=== PATIENT | female | born 1985 | race Two or more races ===

== ENCOUNTER 2019-04-19 08:46 | Day surgery (SDC) | payer BC ==
[2019-04-18 10:56] LABS: BLOOD UREA NITROGEN,BUN 12 mg/dL (7.0-18.0); CARBON DIOXIDE,CO2 26.6 mmol/L (21.0-32.0); CHLORIDE,CL 104 mmol/L (98-107); GLUCOSE RANDOM 96 mg/dL (74-106); POTASSIUM,K 4.2 mmol/L (3.5-5.1); SODIUM,NA 138 mmol/L (136-145)
[~2019-04-19 08:46] MED LIST: Sodium Chloride 0.9% 10 ML SDV IV PRN; Sodium Chloride 0.9% 10 ML Syringe FLUSH PRN; Sodium Chloride 0.9% 2.5 ML Syringe FLUSH PRN; ceFAZolin 2 GM in Premix Bag 1 BAG IV ONE
[2019-04-19] MEDS ORDERED: Lidocaine 2% 5 ML SDV ONE (09:20)
[2019-04-19] MEDS ORDERED: Rocuronium 100 MG/10 ML Syringe ONE (09:20)
[2019-04-19] MEDS ORDERED: Glycopyrrolate 0.2 MG/ML SDV ONE ×2 (09:20)
[2019-04-19] MEDS ORDERED: Neostigmine Methylsulfate 1 MG/ML 5 ML Syringe ONE (09:20)
[2019-04-19] MEDS ORDERED: Ondansetron 4 MG/2 ML SDV ONE (09:20)
[2019-04-19] MEDS ORDERED: Ketorolac 30 MG/ML SDV ONE (09:20)
[2019-04-19] MEDS ORDERED: Dexamethasone 4 MG/ML 5 ML MDV ONE (09:20)
[2019-04-19] MEDS ORDERED: fentaNYL 250 MCG/5 ML SDV ONE ×2 (09:21→11:41)
[2019-04-19] MEDS ORDERED: Propofol 200 MG/20 ML SDV ONE (09:21)
[2019-04-19] MEDS ORDERED: Midazolam 1 MG/ML 2 ML SDV ONE (09:21)
--- NOTE | 2019-04-19 09:31 | PCM.PREANE ---
Preanesthetic Assessment - Anesthesia/Transfusion/Family Hx Anesthesia History: Prior Anesthesia Without Reaction Family History of Anesthesia Reaction: No Transfusion History: Prior Transfusion Without Reaction Intubation History: Unknown - Review of Systems General: No Symptoms Pulmonary: No Symptoms Cardiovascular: No Symptoms Gastrointestinal: No Symptoms Neurological: No Symptoms Other: Reports: None - Physical Assessment Height: 5 ft 1 in Weight: 67.585 kg ASA Class: 2 Mental Status: Alert & Oriented x3 Airway Class: Mallampati = 2 Dentition: Reports: Normal Dentition Thyro-Mental Finger Breadths: 3 Mouth Opening Finger Breadths: 3 ROM/Head Extension: Full Lungs: Clear to Auscultation, Normal Respiratory Effort Cardiovascular: Regular Rate, Regular Rhythm - Lab Values: Laboratory Last Values WBC 7.58 K/uL (4.0-11.0) 04/18/19 10:15 RBC 5.12 M/uL (4.30-5.90) 04/18/19 10:15 Hgb 11.3 g/dL (12.0-16.0) L 04/18/19 10:15 Hct 37.1 % (36.0-46.0) 04/18/19 10:15 MCV 72.5 fL (80.0-98.0) L 04/18/19 10:15 MCH 22.1 pg (27.0-32.0) L 04/18/19 10:15 MCHC 30.5 g/dL (31.0-37.0) L 04/18/19 10:15 RDW Std Deviation 47.0 fl (28.0-62.0) 04/18/19 10:15 RDW Coeff of Luli 18 % (11.0-15.0) H 04/18/19 10:15 Plt Count 434 K/uL (150-400) H 04/18/19 10:15 MPV 9.90 fL (7.40-12.00) 04/18/19 10:15 Nucleated RBC % 0.0 /100WBC 04/18/19 10:15 Nucleated RBCs # 0 K/uL 04/18/19 10:15 Sodium 138 mmol/L (136-145) 04/18/19 10:15 Potassium 4.2 mmol/L (3.5-5.1) 04/18/19 10:15 Chloride 104 mmol/L (98-107) 04/18/19 10:15 Carbon Dioxide 26.6 mmol/L (21.0-32.0) 04/18/19 10:15 BUN 12 mg/dL (7.0-18.0) 04/18/19 10:15 Creatinine 0.6 mg/dL (0.6-1.0) 04/18/19 10:15 Est Cr Clr Drug Dosing 101.58 mL/min 04/18/19 10:15 Estimated GFR (MDRD) > 60.0 ml/min 04/18/19 10:15 Glucose 96 mg/dL (74-106) 04/18/19 10:15 Calcium 9.3 mg/dL (8.5-10.1) 04/18/19 10:15 HCG, Qual NEGATIVE (NEG) 04/18/19 10:15 Blood Type O POSITIVE 04/18/19 10:15 Antibody Screen NEGATIVE 04/18/19 10:15 - Allergies Allergies/Adverse Reactions: Allergies Allergy/AdvReac Type Severity Reaction Status Date / Time amoxicillin [From Augmentin] Allergy Headache Verified 04/16/19 11:56 azithromycin Allergy Nausea and Verified 04/16/19 11:57 Vomiting clavulanic acid Allergy Headache Verified 04/16/19 11:56 [From Augmentin] Penicillins Allergy Hives Verified 04/16/19 11:57 z pack Allergy Nausea and Uncoded 04/16/19 11:57 Vomiting - Blood Blood Available: No - Anesthesia Plan Pre-Op Medication Ordered: None - Acknowledgements Anesthesia Type Planned: General Anesthesia Pt an Appropriate Candidate for the Planned Anesthesia: Yes Alternatives and Risks of Anesthesia Discussed w Pt/Guardian: Yes Pt/Guardian Understands and Agrees with Anesthesia Plan: Yes PreAnesthesia Questionnaire HEENT History: Reports: None Cardiovascular History: Reports: None Respiratory History: Reports: None Gastrointestinal History: Reports: Chronic Constipation, Other (See Below) Other Gastrointestinal History: occasional heartburn Genitourinary History: Reports: None 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: Musculoskeletal History: Reports: None Neurological History: Reports: Migraines Psychiatric History: Reports: Anxiety Endocrine/Metabolic History: Reports: Diabetes, Gestational Other Endocrine/Metabolic History: "pre diabetic" Hematologic History: Reports: Anemia, Blood Transfusion(s) Other Hematologic History: anemic with pregnancies Immunologic History: Reports: None Oncologic (Cancer) History: Reports: None Dermatologic History: Reports: None - Infectious Disease History Infectious Disease History: Reports: None, Other (See Below) (axillary lymphadenopathy 6 months ago, mainly gone by now) - Past Surgical History Head Surgeries/Procedures: Reports: None HEENT Surgical History: Reports: None Cardiovascular Surgical History: Reports: None Respiratory Surgical History: Reports: None GI Surgical History: Reports: None Female Surgical History: Reports: Tubal Ligation Endocrine Surgical History: Reports: None Neurological Surgical History: Reports: None Musculoskeletal Surgical History: Reports: None Oncologic Surgical History: Reports: None Dermatological Surgical History: Reports: None - SUBSTANCE USE Smoking Status *Q: Former Smoker Tobacco Use Within Last Twelve Months: No Recreational Drug Use History: No - HOME MEDS Home Medications: Home Meds Acetaminophen [Tylenol Extra Strength] 1 - 2 tab PO ASDIRECTED PRN 04/16/19 [ History] - CURRENT (IN HOUSE) MEDS Current Meds: Current Medications Lactated Ringer's (Ringers, Lactated) 1,000 mls @ 125 mls/hr IV ASDIRECTED [facility] Sodium Chloride (Saline Flush) 10 ml FLUSH ASDIRECTED PRN PRN Reason: Keep Vein Open Sodium Chloride (Saline Flush) 2.5 ml FLUSH ASDIRECTED PRN PRN Reason: Keep Vein Open Sodium Chloride (Normal Saline) 10 ml IV ASDIRECTED PRN PRN Reason: IV Use Discontinued Medications Dexamethasone (Dexamethasone) Confirm Administered Dose 20 mg .ROUTE .STK-MED ONE Stop: 04/19/19 09:21 Fentanyl (Sublimaze) Confirm Administered Dose 250 mcg .ROUTE .STK-MED ONE Stop: 04/19/19 09:22 Glycopyrrolate (Robinul) Confirm Administered Dose 0.2 mg .ROUTE .STK-MED ONE Stop: 04/19/19 09:21 Glycopyrrolate (Robinul) Confirm Administered Dose 0.6 mg .ROUTE .STK-MED ONE Stop: 04/19/19 09:21 Cefazolin Sodium/Dextrose 2 gm (/ Premix) 50 mls @ 100 mls/hr IV ONETIME ONE Stop: 04/18/19 09:57 Ketorolac Tromethamine (Toradol) Confirm Administered Dose 30 mg .ROUTE .STK- MED ONE Stop: 04/19/19 09:21 Lidocaine (Xylocaine-Mpf 2%) Confirm Administered Dose 5 ml .ROUTE .STK-MED ONE Stop: 04/19/19 09:21 Midazolam HCl (Versed 1 Mg/Ml) Confirm Administered Dose 2 mg .ROUTE .STK-MED ONE Stop: 04/19/19 09:22 Neostigmine Methylsulfate (Neostigmine) Confirm Administered Dose 5 mg .ROUTE .STK-MED ONE Stop: 04/19/19 09:21 Ondansetron HCl (Zofran) Confirm Administered Dose 4 mg .ROUTE .STK-MED ONE Stop: 04/19/19 09:21 Propofol (Diprivan 20 Ml) Confirm Administered Dose 200 mg .ROUTE .STK-MED ONE Stop: 04/19/19 09:22 Rocuronium [place] (Zemuron) Confirm Administered Dose 100 mg .ROUTE .STK-MED ONE Stop: 04/19/19 09:21
[2019-04-19] MEDS ORDERED: Scopolamine 1.5 MG Transdermal Patch TRDERM PRN (09:55)
[2019-04-19] MEDS: Lactated Ringers 1,000 ML IV SCH ×2 (10:19→15:42)
[2019-04-19] MEDS ORDERED: ceFAZolin 2 GM in Premix Bag 1 BAG IV ONE (10:45)
[2019-04-19] MEDS ORDERED: fentaNYL 100 MCG/2 ML SDV ONE (12:19)
[2019-04-19] MEDS ORDERED: Promethazine 25 MG/ML SDV IM PRN (12:31)
[2019-04-19] MEDS ORDERED: Acetaminophen/oxyCODONE 325-5 MG Tab PO PRN (12:31)
[2019-04-19] MEDS ORDERED: Morphine 4 MG/ML Syringe IVPUSH PRN (12:31)
[2019-04-19] MEDS ORDERED: Ketorolac 30 MG/ML SDV IVPUSH ONE (12:31)
--- NOTE | 2019-04-19 12:34 | PCM.OPNOTE ---
- General Post-Op/Procedure Note Date of Surgery/Procedure: 04/19/19 Operative Procedure(s): TVH,Bilateral Salpengectomy and Cystoscopy. Post-Op Diagnosis: Same Anesthesia Technique: General LMA Primary Surgeon: Jayce Nuñez EBL in mLs: 100 Complications: None Condition: Good
[2019-04-19] MEDS ORDERED: HYDROmorphone 2 MG/ML SDV IVPUSH ONE (12:56)
[2019-04-19] MEDS: fentaNYL 100 MCG/2 ML SDV IVPUSH PRN ×2 (13:02→13:12)
[2019-04-19] MEDS ORDERED: HYDROmorphone 2 MG/ML Syringe ONE (13:27)
--- NOTE | 2019-04-19 14:26 | OR ---
SURGEON: Jayce Nuñez MD DATE OF PROCEDURE: 04/19/2019 PREOPERATIVE DIAGNOSIS: Menometrorrhagia. POSTOPERATIVE DIAGNOSIS: Menometrorrhagia. OPERATION PERFORMED: Total vaginal hysterectomy, vaginal bilateral salpingectomy preserving both ovaries, and cystoscopy. PRIMARY SURGEON: Jayce Nuñez MD. RAIL EQUIPMENT OPERATOR: OR genia. ANESTHESIA: General with endotracheal intubation. ESTIMATED BLOOD LOSS: 100 mL. COMPLICATIONS: None. FINDING: Uterus is about 8- to 10-week size. INDICATION: Niles refer to the admit note. PROCEDURE IN DETAIL: The patient was brought to the OR, properly identified, and after adequate level of anesthesia, the patient was placed in lithotomy position, prepped and draped in sterile fashion as usual. A short-weighted speculum was placed in the vagina and straight catheter was used to empty the bladder, and then, single-tooth tenaculum applied to the cervix. Circular incision in the vaginal mucosa around the cervix was performed, and the posterior cul-de-sac entered posteriorly with the Villagomez scissors, the peritoneum and the vagina tacked posteriorly. Next, the uterosacral ligament was identified from both sides, clamped with a curved Zeppelin, transected, suture ligated with 2-0 Vicryl pop-off in a Rajiv fashion, and the same thing was then done with cardinal ligament on both sides. The cervical vesicle space entered anteriorly and the bladder retracted completely away from the operative field. The peritoneal cavity was entered anteriorly and the broad ligament was clamped with a curved Zeppelin from both sides, transected, suture ligated with 2-0 Vicryl pop-off. The uterine vessel suture ligated at this step. Then, the round ligament from both sides clamped with a curved Zeppelin, transected, and suture ligated with 2-0 Vicryl pop-off. The uterus delivered posteriorly and the superior pedicle clamped with a 90- degree zeppelin from sides. The tubes included in the specimen, but the ovary preserved, and then the superior pedicle first tied with an Endoloop and then with a free tie on both sides. Inspection of the operative field shows no oozing, no bleeding, and then, we proceeded to close the vaginal cuff with 2-0 Vicryl interrupted [id number] suture. While we are doing that, we asked Anesthesia to give the patient fluorescein and then cystoscopy was performed. The bladder was intact. Both ureteric orifices seen with the dye coming from the ureteric orifices from both sides, and procedure at this time ended. Instrument and sponge count was correct. The patient tolerated the procedure well, went to recovery room in stable and general condition. RYAN / MARIELA /[id number]
[2019-04-19] MEDS ORDERED: Ketorolac 30 MG/ML SDV IVPUSH PRN (18:30)
[2019-04-19] MEDS: Acetaminophen/oxyCODONE 325-5 MG Tab PO PRN ×2 (19:21→23:07)
[2019-04-19] MEDS: Ondansetron 4 MG/2 ML SDV IVPUSH PRN (23:07)
[2019-04-20 06:29] LABS: BLOOD UREA NITROGEN,BUN 8 mg/dL (7.0-18.0); CARBON DIOXIDE,CO2 26.9 mmol/L (21.0-32.0); CHLORIDE,CL 104 mmol/L (98-107); GLUCOSE RANDOM 118 mg/dL (74-106); SODIUM,NA 138 mmol/L (136-145)
[2019-04-20 08:11] VITALS: BP 112/70; PULSE 84
[2019-04-20] MEDS: Ondansetron 4 MG/2 ML SDV IVPUSH PRN (08:23)
--- NOTE | 2019-04-20 09:17 | PCM.SURGPN ---
- General Info Date of Service: 04/20/19 POD#: 1 Functional Status: Reports: Pain Controlled - Review of Systems General: Reports: No Symptoms HEENT: Reports: No Symptoms Pulmonary: Reports: No Symptoms Cardiovascular: Reports: No Symptoms Gastrointestinal: Reports: No Symptoms Genitourinary: Reports: No Symptoms Musculoskeletal: Reports: No Symptoms Skin: Reports: No Symptoms Neurological: Reports: No Symptoms Psychiatric: Reports: No Symptoms - Patient Data Vitals - Most Recent: Last Vital Signs Temp 36.6 C 04/20/19 08:00 Pulse 84 04/20/19 08:00 Resp 16 04/20/19 08:00 BP 112/70 04/20/19 08:00 Pulse Ox 96 04/20/19 08:00 Weight - Most Recent: 67.585 kg I&O - Last 24 Hours: Intake & Output 04/19/19 04/20/19 04/20/19 22:59 06:59 14:59 Intake Total 542 200 Output Total 0 1850 Balance 542 -1650 Lab Results Last 24 Hrs: Laboratory Results - last 24 hr 04/20/19 04/20/19 Range/Units 05:43 05:43 WBC 13.35 H (4.0-11.0) K/uL RBC 4.02 L (4.30-5.90) M/uL Hgb 8.9 L (12.0-16.0) g/dL Hct 28.9 L (36.0-46.0) % MCV 71.9 L (80.0-98.0) fL MCH 22.1 L (27.0-32.0) pg MCHC 30.8 L (31.0-37.0) g/dL RDW Std Deviation 44.7 (28.0-62.0) fl RDW Coeff of Luli 17 H (11.0-15.0) % Plt Count 369 (150-400) K/uL MPV 10.00 (7.40-12.00) fL Neut % (Auto) 78.2 (48.0-80.0) % Lymph % (Auto) 13.1 L (16.0-40.0) % [place] % (Auto) 8.5 (0.0-15.0) % Eos % (Auto) 0.1 (0.0-7.0) % Baso % (Auto) 0.1 (0.0-1.5) % Neut # (Auto) 10.5 H (1.4-5.7) K/uL Lymph # (Auto) 1.8 (0.6-2.4) K/uL [place] # (Auto) 1.1 H (0.0-0.8) K/uL Eos # (Auto) 0.0 (0.0-0.7) K/uL Baso # (Auto) 0.0 (0.0-0.1) K/uL Nucleated RBC % 0.0 /100WBC Nucleated RBCs # 0 K/uL Sodium 138 (136-145) mmol/L Potassium 4.0 (3.5-5.1) mmol/L Chloride 104 (98-107) mmol/L Carbon Dioxide 26.9 (21.0-32.0) mmol/L BUN 8 (7.0-18.0) mg/dL Creatinine 0.6 (0.6-1.0) mg/dL Est Cr Clr Drug Dosing 101.58 mL/min Estimated GFR (MDRD) > 60.0 ml/min Glucose 118 H (74-106) mg/dL Calcium 8.9 (8.5-10.1) mg/dL Med Orders - Current: Current Medications Fentanyl (Sublimaze) 50 - 100 mcg IVPUSH Q5M PRN PRN Reason: Pain (severe 7-10) Last Admin: 04/19/19 13:12 Dose: 50 mcg Lactated Ringer's (Ringers, Lactated) 1,000 mls @ 125 mls/hr IV ASDIRECTED [facility] Last Admin: 04/19/19 15:42 Dose: 125 mls/hr Ketorolac Tromethamine (Toradol) 30 mg IVPUSH Q6H PRN PRN Reason: Pain (severe 7-10) Stop: 04/24/19 18:31 Last Admin: 04/19/19 17:37 Dose: 30 mg Morphine Sulfate (Morphine) 4 mg IVPUSH Q2H PRN PRN Reason: Pain (severe 7-10) Ondansetron HCl (Zofran) 4 mg IVPUSH Q6H PRN PRN Reason: Nausea/Vomiting Last Admin: 04/20/19 08:23 Dose: 4 mg Oxycodone/Acetaminophen (Percocet 325-5 Mg) 1 tab PO Q4H PRN PRN Reason: Pain (moderate 4-6) Last Admin: 04/19/19 14:23 Dose: 1 tab Oxycodone/Acetaminophen (Percocet 325-5 Mg) 2 tab PO Q4H PRN PRN Reason: Pain (moderate 4-6) Last Admin: 04/19/19 23:07 Dose: 2 tab Promethazine HCl (Phenergan) 25 mg IM Q6H PRN PRN Reason: Nausea/Vomiting Scopolamine (Transderm-Scop) 1.5 mg TRDERM Q72H PRN PRN Reason: Nausea Last Admin: 04/19/19 10:28 Dose: 1.5 mg Sodium Chloride (Saline Flush) 10 ml FLUSH ASDIRECTED PRN PRN Reason: Keep Vein Open Sodium Chloride (Saline Flush) 2.5 ml FLUSH ASDIRECTED PRN PRN Reason: Keep Vein Open Sodium Chloride (Normal Saline) 10 ml IV ASDIRECTED PRN PRN Reason: IV Use Discontinued Medications Dexamethasone (Dexamethasone) Confirm Administered Dose 20 mg .ROUTE .STK-MED ONE Stop: 04/19/19 09:21 Fentanyl (Sublimaze) Confirm Administered Dose 250 mcg .ROUTE .STK-MED ONE Stop: 04/19/19 09:22 Fentanyl (Sublimaze) Confirm Administered Dose 250 mcg .ROUTE .STK-MED ONE Stop: 04/19/19 11:42 Fentanyl (Sublimaze) Confirm Administered Dose 100 mcg .ROUTE .STK-MED ONE Stop: 04/19/19 12:20 Glycopyrrolate (Robinul) Confirm Administered Dose 0.2 mg .ROUTE .STK-MED ONE Stop: 04/19/19 09:21 Glycopyrrolate (Robinul) Confirm Administered Dose 0.6 mg .ROUTE .STK-MED ONE Stop: 04/19/19 09:21 Hydromorphone HCl (Dilaudid) 2 mg IVPUSH ONETIME ONE Stop: 04/19/19 12:57 Last Admin: 04/19/19 13:27 Dose: 2 mg Hydromorphone HCl (Dilaudid) Confirm Administered Dose 2 mg .ROUTE .STK-MED ONE Stop: 04/19/19 13:28 Last Admin: 04/19/19 14:17 Dose: Not Given Cefazolin Sodium/Dextrose 2 gm (/ Premix) 50 mls @ 100 mls/hr IV ONETIME ONE Stop: 04/18/19 09:57 Last Admin: 04/19/19 14:08 Dose: Not Given Cefazolin Sodium/Dextrose 2 gm (/ Premix) 50 mls @ 100 mls/hr IV ONETIME ONE Stop: 04/19/19 11:14 Last Admin: 04/19/19 14:08 Dose: Not Given Ketorolac Tromethamine (Toradol) Confirm Administered Dose 30 mg .ROUTE .STK- MED ONE Stop: 04/19/19 09:21 Ketorolac Tromethamine (Toradol) 30 mg IVPUSH ONETIME ONE Stop: 04/19/19 12:32 Last Admin: 04/19/19 14:17 Dose: Not Given Lidocaine (Xylocaine-Mpf 2%) Confirm Administered Dose 5 ml .ROUTE .STK-MED ONE Stop: 04/19/19 09:21 Midazolam HCl (Versed 1 Mg/Ml) Confirm Administered Dose 2 mg .ROUTE .STK-MED ONE Stop: 04/19/19 09:22 Neostigmine Methylsulfate (Neostigmine) Confirm Administered Dose 5 mg .ROUTE .STK-MED ONE Stop: 04/19/19 09:21 Ondansetron HCl (Zofran) Confirm Administered Dose 4 mg .ROUTE .STK-MED ONE Stop: 04/19/19 09:21 Propofol (Diprivan 20 Ml) Confirm Administered Dose 200 mg .ROUTE .STK-MED ONE Stop: 04/19/19 09:22 Rocuronium [place] (Zemuron) Confirm Administered Dose 100 mg .ROUTE .STK-MED ONE Stop: 04/19/19 09:21 - Exam Wound/Incisions: Healing Well General: Alert, Oriented HEENT: Pupils Equal Neck: Supple Lungs: Clear to Auscultation, Normal Respiratory Effort Cardiovascular: Regular Rate, Regular Rhythm GI/Abdominal Exam: Normal Bowel Sounds, Soft, Non-Tender, No Organomegaly, No Distention, No Abnormal Bruit, No Mass, Pelvis Stable Extremities: Normal Inspection, Normal Range of Motion, Non-Tender, No Pedal Edema, Normal Capillary Refill Skin: Warm, Dry, Intact Neurological: No New Focal Deficit Psy/Mental Status: Alert, Normal Affect, Normal Mood - Problem List Review Problem List Initiated/Reviewed/Updated: Yes - My Orders Last 24 Hours: Active Orders 24 hr Category Date Time Status Patient Status [ADT] Routine ADT 04/19/19 12:31 Active Antiembolic Devices [RC] PER UNIT ROUTINE Care 04/19/19 12:31 Active Notify Provider Vital Signs [RC] ASDIRECTED Care 04/19/19 12:31 Active Oxygen Therapy [RC] ASDIRECTED Care 04/19/19 12:31 Active RT Incentive Spirometry [RC] Q2HWA Care 04/19/19 12:31 Active Up With Assistance [RC] PER UNIT ROUTINE Care 04/19/19 12:31 Active Up ad Mili [RC] PER UNIT ROUTINE Care 04/19/19 12:31 Active Urinary Catheter Removal [RC] Per Unit Routine Care 04/19/19 12:31 Active Vital Signs [RC] PER UNIT ROUTINE Care 04/19/19 12:31 Active Regular Diet [DIET] Diet 04/19/19 Dinner Active Acetaminophen/oxyCODONE [Percocet 325-5 MG] Med 04/19/19 12:31 Active 1 tab PO Q4H PRN Acetaminophen/oxyCODONE [Percocet 325-5 MG] Med 04/19/19 12:31 Active 2 tab PO Q4H PRN Ketorolac [Toradol] Med 04/19/19 18:30 Active 30 mg IVPUSH Q6H PRN Morphine Med 04/19/19 12:31 Active 4 mg IVPUSH Q2H PRN Ondansetron [Zofran] Med 04/19/19 12:31 Active 4 mg IVPUSH Q6H PRN Promethazine [Phenergan] Med 04/19/19 12:31 Active 25 mg IM Q6H PRN Scopolamine [Transderm-Scop] Med 04/19/19 09:55 Active 1.5 mg TRDERM Q72H PRN fentaNYL [Sublimaze] Med 04/19/19 12:56 Active 50 - 100 mcg IVPUSH Q5M PRN Peripheral IV Discontinue [OM.PC] Routine Oth 04/19/19 12:31 Ordered Sequential Compression Device [OM.PC] Per Unit Routine Oth 04/19/19 12:31 Ordered Resuscitation Status Routine Resus Stat 04/19/19 12:31 Ordered Medication Orders Fentanyl (Sublimaze) 50 - 100 mcg IVPUSH Q5M PRN PRN Reason: Pain (severe 7-10) Last Admin: 04/19/19 13:12 Dose: 50 mcg Admin: 04/19/19 13:02 Dose: 50 mcg Lactated Ringer's (Ringers, Lactated) 1,000 mls @ 125 mls/hr IV ASDIRECTED [facility] Last Admin: 04/19/19 15:42 Dose: 125 mls/hr Infusion: 04/19/19 15:42 Dose: 125 mls/hr Admin: 04/19/19 10:19 Dose: 125 mls/hr Ketorolac Tromethamine (Toradol) 30 mg IVPUSH Q6H PRN PRN Reason: Pain (severe 7-10) Stop: 04/24/19 18:31 Last Admin: 04/19/19 17:37 Dose: 30 mg Morphine Sulfate (Morphine) 4 mg IVPUSH Q2H PRN PRN Reason: Pain (severe 7-10) Ondansetron HCl (Zofran) 4 mg IVPUSH Q6H PRN PRN Reason: Nausea/Vomiting Last Admin: 04/20/19 08:23 Dose: 4 mg Admin: 04/19/19 23:07 Dose: 4 mg Oxycodone/Acetaminophen (Percocet 325-5 Mg) 1 tab PO Q4H PRN PRN Reason: Pain (moderate 4-6) Last Admin: 04/19/19 14:23 Dose: 1 tab Oxycodone/Acetaminophen (Percocet 325-5 Mg) 2 tab PO Q4H PRN PRN Reason: Pain (moderate 4-6) Last Admin: 04/19/19 23:07 Dose: 2 tab Admin: 04/19/19 19:21 Dose: 2 tab Promethazine HCl (Phenergan) 25 mg IM Q6H PRN PRN Reason: Nausea/Vomiting Scopolamine (Transderm-Scop) 1.5 mg TRDERM Q72H PRN PRN Reason: Nausea Last Admin: 04/19/19 10:28 Dose: 1.5 mg Sodium Chloride (Saline Flush) 10 ml FLUSH ASDIRECTED PRN PRN Reason: Keep Vein Open Sodium Chloride (Saline Flush) 2.5 ml FLUSH ASDIRECTED PRN PRN Reason: Keep Vein Open Sodium Chloride (Normal Saline) 10 ml IV ASDIRECTED PRN PRN Reason: IV Use - Assessment Assessment (Free Text/Narrative):: Status post vaginal hysterectomy postoperative day #1 the patient is doing well her blood work is stable she is not a bleeding she is on regular diet tolerated very well voiding without any problem and there is no vaginal bleeding - Plan Plan (Free Text/Narrative):: Patient will be sent home today the postvasectomy instruction is given to the patient she is to come to the office 1 week or day of her discharge for postoperative checkup there is no restriction on her diet prescription of Narco 5 for postoperative pain is given
== END 2019-04-20 11:30 | disposition home or self-care (01) ==
LOC: MW.SDS 08:46 → MW.MS 12:51 → MW.SDS 04-20 11:30
PROVIDERS: ATTEND Obstetrics & Gynecology
DX: N84.1 Polyp of cervix uteri (principal); H91.91 Unspecified hearing loss, right ear; G43.909 Migraine, unspecified, not intractable, without status migrainosus; Z98.51 Tubal ligation status; Z86.32 Personal history of gestational diabetes; Z87.891 Personal history of nicotine dependence; Z88.0 Allergy status to penicillin; Z88.1 Allergy status to other antibiotic agents; Z88.8 Allergy status to other drugs, medicaments and biological substances; Z79.899 Other long term (current) drug therapy
CPT/HCPCS: 36415; 58262; 80048; 84703; 85025; 85027; 86850; 86900; 86901; A9270; J1100; J1170; J1885; J2001; J2250; J2405; J2704; J3010; J3490; J7120; 00944; 88300; 88307